=== PATIENT | female | born 1950 | race Caucasian/White ===

== ENCOUNTER 2025-03-21 20:08 | Emergency (ER) | payer MEDICARE, SELFPAY ==
[2025-03-21 20:12] VITALS: BP 94/62
--- NOTE | 2025-03-21 22:16 | ED.MUSCINJ ---
HPI-Injury
General
Chief Complaint: Musculo-Skeletal Complaint
Source: patient
Exam Limitations: none
Time Seen by Provider: 03/21/25 21:27
History of Present Illness-Injury
Initial Injury comments:
74-year-old female presents complaining of left wrist pain after tripping over her dog. She notes swelling. She is right-handed. She is not anticoagulated. Did not hit her head. No other complaints at this time
Phy Exam
Physical Exam
Physical Exam:
General: Well-appearing female no acute respiratory distress
HEENT: Normal cephalic atraumatic
Musculoskeletal exam: Left wrist is swollen and tender over the distal radius and ulna. The elbow is nontender. No significant deformity.
Vascular: 2+ radial pulse left wrist with good sensation to the left fingers
Injury Course
Orders/Labs/Results
Orders:
Orders
03/21/25 20:16
Wrist, Left 3 Views CR [CR Wrist - Left Min 3 Views] Urgent
Comment:
Reason For Exam: FALL
*Pulse Oximetry
SaO2: 98
Oxygen Mode of Delivery: Room air
Patient hypoxic: no
*Critical Care Note
Total Time (30-74mins, 75-104mins- exclusive of procedures): Not Applicable
Update Note
Update Note:
Left wrist pain after trip and fall. Consider sprain versus fracture versus dislocation I personally visualized x-rays of the left wrist which demonstrate comminuted intra-articular fracture of the left distal radius with associated ulnar styloid
fracture.
Patient placed in aVolar wrist splint and will follow-up with orthopedics
ED Attending Note
-
Portions of this chart may have been created with voice recognition software.� Occasional wrong word or��sound alike� substitutions may have occurred due to the inherent limitations of voice recognition software.
Discharge Plan
Departure
Patient Disposition: Home (Routine Discharge)
Date of Disposition: 03/21/25
Time of Disposition: 22:18
Patient with high blood pressure during this ER visit?: No
Discharge Problem:
Distal radial fracture
Instructions: Muscle and Bone Pain (DC)
Referrals:
Simran Hall I., [Active, Orthopedics]
Christopher Contreras MD [Family Provider]
Activity Restrictions/Additional Instructions:
Keep splint on and dry. Elevate for swelling. Follow-up with orthopedics
Interventions
Interventions:
*Risk Screen - Suicide Last Done: 03/21/25 20:12
*Neglect/Abuse Screening Last Done: 03/21/25 20:12
ED-Musculoskeletal Assessment Last Done: 03/21/25 21:15
Discharge Date and Time
Print Language: [id number]
== END 2025-03-21 22:36 | disposition home or self-care (01) ==
LOC: EMR 20:08
PROVIDERS: EMERGENCY PHYSICIAN Emergency Medicine; FAMILY PHYSICIAN Internal Medicine
DX: S52.502A Unspecified fracture of the lower end of left radius, initial encounter for closed fracture (principal); S52.612A Displaced fracture of left ulna styloid process, initial encounter for closed fracture; W01.0XXA Fall on same level from slipping, tripping and stumbling without subsequent striking against object, initial encounter
CPT/HCPCS: 99283; 29125; 73110